=== PATIENT | female | born 1995 | race African-American/Black ===

== ENCOUNTER 2021-02-03 12:47 | Emergency (ER) | payer MEDICAID ==
[~2021-02-03] VITALS: Ht 157.5 cm; Wt 82.0 kg
[2021-02-03] MEDS ORDERED: ONDA4TAB11 PO (13:15)
[2021-02-03] MEDS ORDERED: ONDANSETRON 4MG ODT PO ONE (13:15)
[2021-02-03 13:17] VITALS: BP 120/71
== END 2021-02-03 15:06 | disposition left against medical advice (07) ==
LOC: ER 12:47
DX: M54.5 Low back pain (principal); R11.2 Nausea with vomiting, unspecified; Z88.6 Allergy status to analgesic agent
CPT/HCPCS: 81025; 99283; Q0162

== ENCOUNTER 2022-06-16 19:39 | Emergency (ER) | payer MEDICAID ==
[~2022-06-16] VITALS: Ht 157.5 cm; Wt 65.0 kg
[~2022-06-16 19:39] MED LIST: ONDA4TAB11 PO
[2022-06-16] MEDS ORDERED: SUMATRIPTAN SUCCINATE 25MG TABLET PO ONE (21:15)
[2022-06-16] MEDS ORDERED: KETOROLAC 60MG/2ML VIAL IM ONE (21:15)
[2022-06-16] MEDS ORDERED: BACITRACIN ZINC OINT UDPKT TOP ONE (22:15)
[2022-06-16] MEDS ORDERED: ONDANSETRON 4MG ODT PO ONE (22:15)
[2022-06-16] MEDS ORDERED: LIDOCAINE HCL/PF 1% 10 MG/ML 5ML VIAL INFIL ONE (22:15)
[2022-06-16] MEDS ORDERED: CLIN-194 MT (22:57)
[2022-06-16 23:00] VITALS: BP 143/74
[2022-06-16] MEDS ORDERED: HYDROCODONE/ACETAMINOPHEN 5/325MG TABLET PO ONE (23:00)
[2022-06-16] MEDS ORDERED: CLINDAMYCIN HCL 150MG CAPSULE PO SCH (23:00)
== END 2022-06-16 23:20 | disposition home or self-care (01) ==
LOC: ER 19:39
DX: S63.691A Other sprain of left index finger, initial encounter (principal); L03.012 Cellulitis of left finger; G43.909 Migraine, unspecified, not intractable, without status migrainosus; W23.0XXA Caught, crushed, jammed, or pinched between moving objects, initial encounter; Y93.89 Activity, other specified; Y92.89 Other specified places as the place of occurrence of the external cause
CPT/HCPCS: 10060; 73140; 81025; 96372; 99284; J1885; J3490; Q0162